=== PATIENT | female | born 1995 ===

== ENCOUNTER 2017-04-30 00:07 | Emergency (ER) | payer SELFPAY ==
[2017-04-30 00:13] VITALS: BP 102/66; PULSE 83; RESP 16; TEMP 97.8; O2SAT 97
--- NOTE | 2017-04-30 00:54 | C.PDOC ---
History Of Present Illness 22 year old female presents to the ER with a complaint of an itchy rash to the chest and back for the past 2 weeks. Patient denies use of new skin products, known Hx of allergies, sick contact, fever, travel, or individuals at home with similar symptoms. Time Seen by Provider: 04/30/17 00:19 Chief Complaint (Nursing): Abnormal Skin Integrity History Per: Patient History/Exam Limitations: no limitations Onset/Duration Of Symptoms: Days Current Symptoms Are (Timing): Still Present Location Of Injury: Anterior: Chest, Posterior: Back Quality Of Symptoms: Itching, Other (Rash) Recent travel outside of the [place]: No Past Medical History Reviewed: Historical Data, Nursing Documentation, Vital Signs Vital Signs: Last Vital Signs Temp 97.8 F 04/30/17 00:10 Pulse 83 04/30/17 00:10 Resp 16 04/30/17 00:10 BP 102/66 04/30/17 00:10 Pulse Ox 97 04/30/17 00:54 - Medical History PMH: No Chronic Diseases Surgical History: No Surg Hx Family History: States: Unknown Family Hx - Social History Hx Alcohol Use: No Hx Substance Use: No Review Of Systems Constitutional: Negative for: Fever, Chills Respiratory: Negative for: Shortness of Breath Skin: Positive for: Rash Physical Exam - Physical Exam Appears: Non-toxic, No Acute Distress Skin: Warm, Dry, Rash (Circular macular w/ central clearing to chest and back. No evidence of urticaria.) Head: Atraumatic, Normacephalic Eye(s): bilateral: Normal Inspection Oral Mucosa: Moist Tongue: Normal Appearing, No Swelling Lips: Normal Appearing, No Swelling Neck: Normal, Supple Chest: Symmetrical Cardiovascular: Rhythm Regular Respiratory: Normal Breath Sounds, No Rales, No Rhonchi, No Wheezing Neurological/Psych: Oriented x3, Normal Speech ED Course And Treatment O2 Sat by Pulse Oximetry: 97 (Room air) Pulse Ox Interpretation: Normal Medical Decision Making Medical Decision Making: Benadryl and prednisone administered. On reevaluation, patient reports improvement of rash; will discharge home with Rx and instruct to follow up with PMD. Disposition - Disposition Referrals: [facility] [Outside] Disposition: HOME/ ROUTINE Disposition Time: 00:52 Condition: GOOD Additional Instructions: Follow up with the medical doctor within 1-2 days. Return if worsened. 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 - Scribe Statement The provider has reviewed the documentation as recorded by the Scribe Daron Weiss All medical record entries made by the Marizaibjosh were at my direction and personally dictated by me. I have reviewed the chart and agree that the record accurately reflects my personal performance of the history, physical exam, medical decision making, and the department course for this patient. I have also personally directed, reviewed, and agree with the discharge instructions and disposition.
== END 2017-04-30 01:02 | disposition home or self-care (01) ==
LOC: C.ER 00:07
DX: B35.4 Tinea corporis (principal)